=== PATIENT | male | born 1960 | race Caucasian/White ===

== ENCOUNTER 2020-01-03 15:43 | Inpatient (IN) ==
[2020-01-03] MEDS ORDERED: TUBERSOL ID ONE (17:36)
[2020-01-03] MEDS ORDERED: DULCOLAX PR PRN (17:36)
[2020-01-03] MEDS ORDERED: NICODERM PATCH TD PRN (17:36)
[2020-01-03] MEDS ORDERED: DESYREL PO PRN (17:36)
[2020-01-03] MEDS ORDERED: ZOFRAN IV PRN (17:36)
[2020-01-03] MEDS ORDERED: BENTYL PO PRN (17:36)
[2020-01-03] MEDS ORDERED: SEROQUEL PO PRN (17:36)
[2020-01-03] MEDS ORDERED: PHENOBARBITAL IV PRN (17:36)
[2020-01-03] MEDS ORDERED: D5W 1,000 ML IV PRN (17:36)
[2020-01-03] MEDS ORDERED: ZOFRAN ODT PO PRN (17:36)
[2020-01-03] MEDS ORDERED: SENOKOT PO PRN (17:36)
[2020-01-03] MEDS ORDERED: ROBAXIN PO PRN (17:36)
[2020-01-03] MEDS ORDERED: SALINE LOCK IV FLUID XX ONE (17:36)
[2020-01-03] MEDS ORDERED: MOTRIN PO PRN (17:36)
[2020-01-03] MEDS ORDERED: IMODIUM PO PRN (17:36)
[2020-01-03] MEDS ORDERED: TYLENOL PO PRN (17:36)
[2020-01-03] MEDS ORDERED: MAALOX PLUS LIQUID PO PRN (17:36)
[2020-01-03] MEDS ORDERED: ATARAX PO PRN (17:36)
[2020-01-03 18:45] LABS: AMYLASE 43 U/L (20-200); LIPASE 49 U/L (13-60)
[2020-01-03 18:47] LABS: AGAP 16; ALBUMIN 4.4 g/dL (3.5-5.0); ALKALINE PHOSPHATASE 87 U/L (32-122); BUN 9 mg/dL (8-22); CHLORIDE 102 mmol/L (98-107); COSMO 282; CREATININE 0.6 mg/dL (0.7-1.2); ESTIMATED GFR > 60; GLUCOSE 104 mg/dL (70-104); GOT 80 U/L (10-34); GPT 57 U/L (10-44); POTASSIUM 3.8 mmol/L (3.5-5.1); SODIUM 142 mmol/L (136-145); TCO2 25 mmol/L (25-35); TOTAL PROTEIN 7.5 g/dL (6.3-8.3)
[2020-01-03 18:58] LABS: HEMATOCRIT 42.6 % (42.0-52.0); MCH 31.5 PG (27-31); MCHC 32.9 g/dL (33-37); MCV 95.7 FL (81-99); MPV 10.2 FL (7.4-10.4); RBC 4.45 XMIL (4.7-6.1); RDW 12.9 % (11.5-14.5); WBC 3.37 X1000 (4.8-10.8)
[2020-01-03 19:10] LABS: INR 1.05; PROTIME 14.2 Seconds (11.0-16.0)
[2020-01-03] MEDS: LIBRIUM PO SCH (20:44)
[2020-01-04 02:39] LABS: URINE SOURCE VOIDED
[2020-01-04] MEDS: LIBRIUM PO SCH ×4 (02:40→20:33)
[2020-01-04 02:43] LABS: BILIRUBIN URINE NEGATIVE (NEGATIVE); BLOOD URINE NEGATIVE (NEGATIVE); COLOR YELLOW; GLUCOSE URINE NEGATIVE (NEGATIVE); KETONE URINE NEGATIVE (NEGATIVE); LEUKOCYTES URINE NEGATIVE (NEGATIVE); NITRITE URINE NEGATIVE (NEGATIVE); PROTEIN URINE 30 mg/dL (NEGATIVE); SP GRAVITY URINE 1.023; TURBIDITY URINE CLEAR (CLEAR); UR EPITHELIAL CELLS <10 /HPF (<10); URINE BACTERIA NEGATIVE /HPF; URINE RBC <10 /HPF (<10); URINE WBC <10 /HPF (<10); UROBILINOGEN URINE NORMAL (NORMAL)
[2020-01-04 03:04] LABS: UR AMPHETAMINES QUAL NONE DETECTED (NONE DETECT); UR BARBITUATES QUAL NONE DETECTED (NONE DETECT); UR COCAINE QUAL NONE DETECTED (NONE DETECT)
[2020-01-04 03:05] LABS: UR BENZODIAZEPIN QUAL PRESUMPTIVE POSITIVE (NONE DETECT); UR CANNABINOIDS QUAL NONE DETECTED (NONE DETECT); UR METHADONE QUAL NONE DETECTED (NONE DETECT); UR METHAMPHETAMINE QUAL NONE DETECTED (NONE DETECT); UR OPIATES QUAL NONE DETECTED (NONE DETECT); UR OXYCODONE QUAL NONE DETECTED (NONE DETECT); UR PCP QUAL NONE DETECTED (NONE DETECT); UR PROPOXYPHENE QUAL NONE DETECTED (NONE DETECT); UR TCA QUAL NONE DETECTED (NONE DETECT)
[2020-01-04] MEDS: PROTONIX PO SCH (06:02)
--- NOTE | 2020-01-04 07:13 | HISTORY AND PHYSICAL ---
CHIEF COMPLAINT: Nausea and vomiting. HISTORY OF PRESENT ILLNESS: The patient is a 59-year-old male, who presented to [facility] secondary to nausea, vomiting, abdominal pain, myalgias. He states he has been drinking heavily and wants to get sober. SOCIAL HISTORY: The patient is . He is employed, lives in [place]. PAST MEDICAL HISTORY: Elevated LFTs, hypertension, atrial fibrillation, sleep apnea, currently uses BiPAP at night. Has a history of blackouts that are alcohol-related, several concussions due to ice hockey, had cardiac ablation in 2013. He has chronic anxiety and depression. MEDICATIONS: Metoprolol 50. Trazodone 25. ALLERGIES: No known drug allergies. REVIEW OF SYSTEMS: CIWA score is 27 secondary to nausea, vomiting, abdominal pain, myalgias, his auditory and visual hallucinations, frequent sweating. He is easily agitated, increased anxiety, has a headache. Denies any chest pain, palpitations. Denies fevers, chills. Denies dysuria, frequency, urgency, hesitancy, polyuria or polydipsia. Denies skin rashes, weight loss or weight gain. SUBSTANCE ABUSE HISTORY: He was in treatment in 2018 in [place] 3 to 4 days, stayed sober 3 or 4 weeks. States that alcohol has caused health problems, financial problems, work problems, and relationship problems. Started drinking at 15, does not remember the last that he did not drink. He currently drinks at least a pint a day. Started marijuana at 15, currently rarely uses, started depressants at 54, used for about 8 months. Started cocaine at 24, used 2 to 3 times a week for 3 years. Denies other illicit substances or smoking. FAMILY HISTORY: Noncontributory. PHYSICAL EXAMINATION: VITAL SIGNS: Reviewed and stable. GENERAL: The patient is awake, alert, oriented. He is in no current respiratory distress. HEENT: Normocephalic. CARDIOVASCULAR: Regular rate. CHEST: Clear. ABDOMEN: Soft. EXTREMITIES: Moves all extremities. NEUROLOGIC: No focal neurological changes. SKIN: Warm and dry. No rashes. ASSESSMENT: 1. Nausea and vomiting. 2. Abdominal pain. 3. Myalgias. 4. Paresthesias. 5. Paroxysmal sweating. 6. Alcohol abuse withdrawal and stabilization. 7. Hypertension. 8. Obesity. PLAN: We will continue counseling although the patient currently is recalcitrant to any further treatment. We are going to place him on high-dose Librium taper, continue to follow. Further orders as needed. cc: Yonny Salmeron MD
[2020-01-04] MEDS ORDERED: TORADOL IV ONE (08:34)
[2020-01-04] MEDS ORDERED: M.V.I.-12 10 ML, FOLIC ACID 1 MG, MAGNESIUM SULFATE 1 GM, THIAMINE 100 MG in NS 1,000 ML IV ONE (09:00)
--- NOTE | 2020-01-04 09:06 | Diag Imaging Result Doc PS360 ---
EXAM: CHEST-2 VIEWS HISTORY: hypoxia TECHNIQUE: Two views COMPARISON: None. FINDINGS: The lungs are well expanded. Minimal atelectasis or scarring in the left lung base. The heart is not enlarged. The vessels are not distended. There are no infiltrates. No pleural effusions. Old right rib fracture. IMPRESSION: No acute abnormality. Electronically signed by Pradeep Palm 01/04/2020 9:03 AM
[2020-01-04] MEDS: THERA M PLUS PO SCH (09:18)
[2020-01-04] MEDS: FOLIC ACID PO SCH (09:18)
[2020-01-04] MEDS: LOPRESSOR PO SCH (09:18)
[2020-01-04] MEDS: VITAMIN B-1 PO SCH (09:18)
[2020-01-04] MEDS: DESYREL PO SCH (20:33)
--- NOTE | 2020-01-04 22:12 | PROGRESS NOTE ---
DATE: 01/04/2020 SUBJECTIVE: The patient notes overall he is feeling okay from a withdrawal standpoint, but feels terrible from a chronic back pain standpoint. OBJECTIVE: Temperature 98 degrees, pulse 72, respiratory rate 18, BP 150/93.General: The patient is an obese male who currently is in no respiratory distress. HEENT: Normocephalic. Neck supple. Cardiovascular: Regular rate. Chest clear. Abdomen soft, obese, nondistended. Extremities: Moves all extremities. ASSESSMENT: 1. Chronic back pain. 2. Elevated liver function tests by history. 3. Sleep apnea. 4. Atrial fibrillation. 5. Hypertension. 6. Nausea and vomiting. 7. Tremors. 8. Myalgias. 9. Paresthesias. PLAN: We are going to continue the patient in the hospital. Continue to wean Librium as tolerated. Further orders as needed. Continue counseling as patient allows. cc: Yonny Salmeron MD
[2020-01-05] MEDS: LIBRIUM PO SCH ×4 (06:00→16:44)
[2020-01-05] MEDS: PROTONIX PO SCH (06:10)
[2020-01-05] MEDS: VITAMIN B-1 PO SCH (09:13)
[2020-01-05] MEDS: FOLIC ACID PO SCH (09:13)
[2020-01-05] MEDS: THERA M PLUS PO SCH (09:13)
[2020-01-05] MEDS: COZAAR PO SCH (09:14)
[2020-01-05] MEDS: LOPRESSOR PO SCH ×2 (09:14→20:59)
[2020-01-05] MEDS: DESYREL PO SCH (20:14)
--- NOTE | 2020-01-05 22:00 | PROGRESS NOTE ---
DATE: 01/05/2020 SUBJECTIVE: Patient notes he is feeling a lot better. Denies any fevers, chills. Denies cough, congestion. PHYSICAL EXAMINATION: Vital Signs: Reviewed. General: He is an awake, alert, obese male who is in no current respiratory distress. HEENT: Normocephalic. Neck: Supple. Cardiovascular: Regular rate. Chest: Clear. Abdomen: Soft. Extremities: Moves all extremities. Neurologic: No changes. ASSESSMENT: 1. Nausea and vomiting. 2. Abdominal pain. 3. Myalgias. 4. Paresthesias. 5. Paroxysmal sweating. 6. Hypertension. 7. Chronic pain. 8. Alcohol abuse withdrawal and stabilization. PLAN: We will continue patient in the hospital, wean Librium, continue counseling, and hopefully home over the next 1 or 2 days. cc: Yonny Salmeron MD
[2020-01-06] MEDS: PROTONIX PO SCH (06:00)
[2020-01-06 07:30] VITALS: BP 179/105
[2020-01-06] MEDS: COZAAR PO SCH (07:59)
[2020-01-06] MEDS: FOLIC ACID PO SCH (07:59)
[2020-01-06] MEDS: LOPRESSOR PO SCH (08:00)
[2020-01-06] MEDS: THERA M PLUS PO SCH (08:00)
[2020-01-06] MEDS: VITAMIN B-1 PO SCH (08:00)
[2020-01-06] MEDS ORDERED: VIVITROL IM ONE (08:21)
[2020-01-06] MEDS ORDERED: LIBRIUM PO SCH (09:00)
--- NOTE | 2020-01-08 06:49 | DISCHARGE SUMMARY ---
ADMISSION DATE: 01/03/2020 DISCHARGE DATE: 01/06/2020 DISCHARGE DIAGNOSES: 1. Nausea and vomiting. 2. Abdominal pain. 3. Myalgias. 4. Paresthesias. 5. Paroxysmal sweating. 6. Tremors. 7. Alcohol abuse withdrawal and stabilization. CONSULTATIONS: None. PROCEDURES: None. BRIEF HOSPITAL COURSE: The patient is an obese 59-year-old male who has a known history of sleep apnea, atrial fibrillation and hypertension, presented to the hospital secondary to nausea, vomiting, abdominal pain, and alcohol withdrawal. He was placed on high-dose Librium taper. Counseling was performed. [*] On discharge thankfully, the patient continued to improve. His withdrawal symptoms have resolved. DISPOSITION: Patient will be discharged home. PLAN: Patient will be discharged after having received a shot of Vivitrol. Discussed with him the importance of continue to follow up with either Vivitrol or naltrexone in the next 3 or 4 weeks. Discussed outpatient life counseling as well as alcohol counseling. Greater 30 minutes spent in total care. cc: Yonny Salmeron MD
== END 2020-01-06 11:09 | disposition home or self-care (01) | DRG 392 ==
LOC: P.MEDSURG 17:40
PROVIDERS: ADMIT Family Medicine; ATTEND Family Medicine